=== PATIENT | male | born 1985 | race African-American/Black ===

== ENCOUNTER 2018-01-26 01:51 | Emergency (ER) | payer MEDICAID ==
[~2018-01-26] VITALS: Ht 182.9 cm; Wt 136.0 kg
[2018-01-26] MEDS ORDERED: HALOPERIDOL LACTATE 5MG/ML VIAL IM STA (02:31)
[2018-01-26 02:49] LABS: BASOPHILS % 1.4 % (0.0-2.0); EOSINOPHILS % 3.1 % (0.0-5.0); HEMATOCRIT. 43.1 % (42.0-52.0); HEMOGLOBIN. 14.6 g/dL (14.0-18.0); LYMPHOCYTES % 36.1 % (20.0-50.0); MEAN CORPUSCULAR HEMOGLOBIN 30.7 pg (28.0-32.0); MEAN CORPUSCULAR VOLUME 90.3 fL (80.0-94.0); MONOCYTES % 7.9 % (2.0-8.0); NEUTROPHILS % 51.5 % (40.0-76.0); PLATELET 263 x1000/uL (130-400); RED BLOOD CELL COUNT 4.77 mill/uL (4.7-6.1); RED CELL DISTRIBUTION WIDTH 13.2 % (11.6-14.6)
[2018-01-26 02:52] LABS: CHLORIDE 110 mEq/L (98-107)
[2018-01-26 02:56] LABS: ETHANOL BLOOD 200 mg/dL
[2018-01-26 03:02] VITALS: BP 144/85
== END 2018-01-26 04:02 | disposition left against medical advice (07) ==
LOC: ER 02:11
DX: F10.229 Alcohol dependence with intoxication, unspecified (principal); F12.10 Cannabis abuse, uncomplicated; R45.851 Suicidal ideations; R45.850 Homicidal ideations; R03.0 Elevated blood-pressure reading, without diagnosis of hypertension; Y90.7 Blood alcohol level of 200-239 mg/100 ml
CPT/HCPCS: 36415; 80053; 80307; 80329; 84443; 85025; 96372; 99285; G0482; J1630; 99284

== ENCOUNTER 2020-06-14 21:19 | Emergency (ER) | payer MEDICAID | END 2020-06-15 07:41 | disposition left against medical advice (07) | LOC: ER 21:19 | DX: Z53.21 Procedure and treatment not carried out due to patient leaving prior to being seen by health care provider (principal) ==